=== PATIENT | female | born 1955 | race Caucasian/White ===

== ENCOUNTER 2017-04-28 09:03 | Outpatient (CLI) ==
[2015-05-10 08:13] VITALS: BMI 42.1
[2017-04-28 09:36] LABS: ALBUMIN 3.8 g/dL (3.4-5.0); ALBUMIN/GLOBULIN RATIO 1.12; ANION GAP 12.9; BILIRUBIN,TOTAL 0.52 mg/dL (0.00-1.20); BUN/CREATININE RATIO 17.94; CALCIUM 9.2 mg/dL (8.2-10.2); CHOL/HDL RATIO 4.1 (4.5-5.5); CREATININE 0.78 mg/dL (0.60-1.30); POTASSIUM 3.9 mmol/L (3.5-5.10); TOTAL PROTEIN 7.2 g/dL (5.8-8.1)
== END 2017-04-28 09:04 | disposition home or self-care (01) ==
LOC: LAB 09:03
PROVIDERS: ATTEND Nurse Practitioner Family
DX: E78.5 Hyperlipidemia, unspecified (principal)
CPT/HCPCS: 36415; 80053; 80061

== ENCOUNTER 2017-10-30 13:02 | Outpatient (CLI) ==
[2015-05-10 08:13] VITALS: BMI 42.1
[2017-10-30 14:06] LABS: BASOPHILS # (AUTO) 0.1 K/uL (0-0.2); BASOPHILS % (AUTO) 0.7 % (0.0-3.0); HEMOGLOBIN 13.3 g/dl (12.0-16.0); IMMATURE GRANULOCYTE % (AUTO) 0.3 % (0.0-5.0); LYMPHOCYTES # (AUTO) 3.5 K/uL (0.60-3.4); LYMPHOCYTES % (AUTO) 49.7 (10.0-50.0); MEAN CORPUSCULAR HEMOGLOBIN 29.8 pg (27.0-31.0); MEAN CORPUSCULAR HGB CONC 33.3 (31.8-35.4); MEAN CORPUSCULAR VOLUME 89.7 fl (81.0-99.0); MONOCYTES # (AUTO) 0.5 K/uL (0.4-2.0); MONOCYTES % (AUTO) 7.2 (0-10); NEUTROPHILS % (AUTO) 42.1; PLATELET COUNT 349 10^3/uL (140-440); RED BLOOD COUNT 4.46 10^6/ul (4.20-5.40); WHITE BLOOD COUNT 7.06 K/ul (4.6-10.2)
[2017-10-30 14:11] LABS: ALBUMIN 3.8 g/dL (3.4-5.0); ALBUMIN/GLOBULIN RATIO 0.95; ANION GAP 11.9; BILIRUBIN,TOTAL 0.47 mg/dL (0.00-1.20); BUN/CREATININE RATIO 18.82; CALCIUM 9.7 mg/dL (8.2-10.2); CREATININE 0.85 mg/dL (0.60-1.30); POTASSIUM 3.9 mmol/L (3.5-5.10); TOTAL PROTEIN 7.8 g/dL (5.8-8.1)
== END 2017-10-30 13:03 | disposition home or self-care (01) ==
LOC: LAB 13:02
PROVIDERS: ATTEND Nurse Practitioner Family
DX: E78.5 Hyperlipidemia, unspecified (principal); I10 Essential (primary) hypertension
CPT/HCPCS: 36415; 80053; 80061; 85025

== ENCOUNTER 2018-04-30 11:52 | Outpatient (CLI) | payer OTHER ==
[2015-05-10 08:13] VITALS: BMI 42.1
== END 2018-04-30 11:53 | disposition home or self-care (01) ==
LOC: RHC-LAB 11:52
PROVIDERS: ATTEND Nurse Practitioner Family
DX: E78.5 Hyperlipidemia, unspecified (principal); I10 Essential (primary) hypertension
CPT/HCPCS: 36415; 80053; 80061; 84443; 85025

== ENCOUNTER 2018-08-20 08:00 | Outpatient (RCR) | payer OTHER ==
[2015-05-10 08:13] VITALS: BMI 42.1
--- NOTE | 2018-08-04 11:21 | RS.OPPTEV2 ---
Date of Note: 08/04/18 Visit #: 1 Date of Evaluation: 08/04/18 Payer Source: MEDICARE Surgery Performed?: No Treatment Diagnosis: Right hip pain History of Condition/Mechanism of Injury:: Mrs. Guerrero reports having right hip pain for approximately 6 months with no known injury. Prior Level of Function.....Patient was independent with: ADL's, Self Care, Caregiving, Ambulation/Mobility, Community Integration/Access Functional Limitations: Sleep, ADL's, Sitting, Standing, Bending, Squatting, Ambulation, Community Access/Integration Current Subjective/complaints:: Patient reports right hip pain with prolonged sitting or standing. She describes right groin pain when first standing up after prolonged sitting. Denies radiating pain beyond the upper thigh and also denies tingling or numbness in the right LE. She has tried heat, which has eased the pain somewhat. She received an injection in the right lower back region. She states it has helped, but she can still feel pain. Reports difficulty sleeping due to being unable to stay on the right side very long. She has to change positions frequently. She is able to get a little relief when sitting, if she shifts her weight to the left hip and crosses the right leg over the left. Treatment Side (optional): Right Medical History Medical History Comments:: Physically Disabled (on Disability), his of Low back pain Smoking Status: Former smoker Hx Home Medications: Lisinopril Patient's Goals: Her goal is to get relief of right hip and low back pain. Pain Assessment - Pain Description Pain Location: right low back and hip Current Pain Intensity: 8/10 Worst Pain Intensity: not quantified Functional Outcome Measure LE Functional Scale: 37 (37/80=53.75% impairment) - G Codes & Severity Modifier G Codes & Modifier: body position current CK. Body position goal CI Source of G Code score: LE functional scale Observation - Observation Posture: Forward Head, Rounded Shoulders, Increased Lumbar Lordosis Gait - Gait Pattern Gait Comments: Pt ambulates independently without an assistive device. She demonstrates decreased stance on the right LE. - Strength Comments: Trunk strength 4/5. Bilateral LE strength 4+ to 5/5 . - Special Tests LION Test: Negative Left, Positive Right SLR Test: Negative Left, Negative Right Seated Dural Stretch Test: Negative Left, Negative Right SI Joint Compression: Negative Comments: Teri Test Negative bilaterally. Palpation Comments:: Patient demonstrates minimal to moderate muscle guarding along the mid to lower lumbar paraspinals. Reports moderate tenderness over the right SI joint, superior gluteal musculature and over the right Greater trochanter. Sensation - Sensation Right Lower Extremity: Intact/Normal Left Lower Extremity: Intact/Normal Additional Comments: Additional Comments: Right SLR to 45-50 degrees, left SLR to 60 degrees. - Treatment Modality: Ultrasound Parameters/Method Applied: X 10 mins to right lumbar and SI region, X 7 mins to right greater trochanter, both @ 1.5 w/cm2 continuous, total of 17 mins Patient Position: Left Sidelying Interventions - Exercise/Activities/Manual Therapy Exercises/Activities: Patient instructed in HS and Piriformis stretch for home. Also advised her to avoid bending straight over. Manual Therapy: NA HOME EXERCISE PROGRAM: Stretch to HS and Piriformis. - Charges Timed Code Treatment Minutes: 17 mins Total Treatment Time: 49 mins Procedures billed for this date of service:: EVAL Medium, US EVALUATION COMPLEXITY LEVEL EVALUATION COMPLEXITY LEVEL: HISTORY: Medium (Hx of LBP, Physically Disabled), EXAM OF BODY SYSTEMS: Medium, CLINICAL PRESENTATION: Medium, CLINICAL DECISION MAKING: Medium Assessment Assessment: Patient presents to therapy with a diagnosis of OA of right hip, Right hip pain. She reports right hip pain with prolonged sitting and standing. She exhibits muscle guarding along the lumbar spine, and tenderness along the right SI, right superior gluteal muscles, and over the greater trochanter. She also exhibits an imbalance in flexibility of the LE's. Right hip hip demonstrates tighter HS and Piriformis compared to the left LE. She demonstrates good potential to benefit from modalities to reduce tenderness, and stretching ex's to reduce her pain. Patient Education: Education of diagnosis, Body/Joint mechanics, Home Exercise Program, Activity Modification, Education of Plan of Care Rehab Potential: Good Short Term Goals Goal #1: Pt independent and compliant in HEP. Goal to be met by: 08/18/18 Goal #2: Right SLR to 50-55 degrees. Goal to be met by: 08/18/18 Goal #3: Tenderness at right SI joint and greater trochanter decreased to minimal. Goal to be met by: 08/18/18 Intermediate Goals Goal #1: Pt knows HEP and to continue ex's to maintain functional level at D/c. Goal to be met by: 09/13/18 Goal #2: Score on LE functional scale improved to 19% or less. Goal to be met by: 09/13/18 Goal #3: Pt to stand as needed for ADL's/functional activities with minimal pain. Goal to be met by: 09/13/18 Goal #4: Pt to sit as needed with minimal to no back or right hip pain. Goal to be met by: 09/13/18 Plan - Treatment to be Provided Procedures: Therapeutic Exercises, Therapeutic Activity, Patient Education Modalities: Electrical Stimulation, Ultrasound/Phonophoresis, Cryotherapy, Hot Packs - Treatment Plan Frequency: 2-3 X week Duration: 4 weeks ORDER # VISITS AND/OR THROUGH DATE: 09/13/18 - Treatment Code (1) Right hip pain Code(s): M25.551 - PAIN IN RIGHT HIP Comments: M25.551 (2) Low back pain Code(s): M54.5 - LOW BACK PAIN Qualifiers: Chronicity: unspecified Back pain laterality: right Sciatica presence: unspecified whether sciatica present Qualified Code(s): M54.5 - Low back pain
--- NOTE | 2018-08-06 15:33 | RS.OPPTDN ---
Subjective Date of Note: 08/06/18 Visit #: 2 Date of Evaluation: 08/04/18 Payer Source: MEDICARE Treatment Diagnosis: Right hip pain Current Subjective/complaints:: Reports first treatment helped reduce pain in the lowback and right hip. States she has worked on initial HEP. Pain Assessment - Pain Description Pain Location: lowback, right hip and S-I Current Pain Intensity: 7/10 Other Comments regarding Pain:: Reports pain down to mild following treatment and stretching exercise. - Treatment Modality: Ultrasound Parameters/Method Applied: [id number] at 1.5w/cm2 to the bilateral lower lumbar paraspinals and right S-I joint prior to EX. Patient Position: Left Sidelying - Heat/Cryotherapy Treatment: Hot Pack ([id number] to the lowback and hips prior to US and EX. Patient in supine. ) Interventions - Exercise/Activities/Manual Therapy Exercises/Activities: Assisted stretching of the bilateral HS, Piriformis, SKTC , and mod figure 4 hip stretch. Isometric hip flexion, isometric hip add. Pelvic tilt. Total minutes of Exercise: 14mins Manual Therapy: NA HOME EXERCISE PROGRAM: Stretch to HS and Piriformis. - Charges Timed Code Treatment Minutes: 14mins Total Treatment Time: 37mins Procedures billed for this date of service:: HP, US, EX Assessment: Patient responded well to treatment today with reports of pain reduction. She appears motivated to progress with HEP. Patient Education: Education of diagnosis, Body/Joint mechanics, Home Exercise Program Comments: Patient education of body mechanics and safety with lifting and functional activities at home. Patient demonstrates compliance with HEP?: Yes Short Term Goals Goal #1: Pt independent and compliant in HEP. Goal to be met by: 08/18/18 Progress towards Goal:: Progressing Goal #2: Right SLR to 50-55 degrees. Goal to be met by: 08/18/18 Goal #3: Tenderness at right SI joint and greater trochanter decreased to minimal. Goal to be met by: 08/18/18 Assisted Goals Goal #1: Pt knows HEP and to continue ex's to maintain functional level at D/c. Goal to be met by: 09/13/18 Goal #2: Score on LE functional scale improved to 19% or less. Goal to be met by: 09/13/18 Goal #3: Pt to stand as needed for ADL's/functional activities with minimal pain. Goal to be met by: 09/13/18 Goal #4: Pt to sit as needed with minimal to no back or right hip pain. Goal to be met by: 09/13/18 Plan PLAN OF CARE EXPIRES ON:: 09/13/18 ORDER # VISITS AND/OR THROUGH DATE: 09/13/18 PLAN: Continue modalities and progress with exercise to reduce pain and increase functional activity level.
--- NOTE | 2018-08-10 10:06 | RS.OPPTDN ---
Subjective Date of Note: 08/10/18 Visit #: 3 Date of Evaluation: 08/04/18 Payer Source: MEDICARE Treatment Diagnosis: Right hip pain Current Subjective/complaints:: Patient reports she stood for long periods this weekend at a family , and has had increased back pain and muscle tension. States she feels much better following treatment and exercise today. Pain Assessment - Pain Description Pain Location: lowback, right S-I Pain Description: Tightness, Dull, Aching Current Pain Intensity: mod prior to, mild following treatment today - Treatment Modality: Ultrasound Parameters/Method Applied: [id number] US at 1.5w/cm2 to the bilateral lowback and right right S-I joint prior to EX. Patient in left side-lying. Patient Position: Left Sidelying - Heat/Cryotherapy Treatment: Hot Pack ([id number] to the lowback and hips prior to US and EX. Patient in supine. ) Interventions - Exercise/Activities/Manual Therapy Exercises/Activities: Assisted stretching of the bilateral HS, Piriformis, SKTC , and mod figure 4 hip stretch. Isometric hip flexion, isometric hip add. MET of right hip isometric hip extension. Pelvic tilt. Began bridging. Total minutes of Exercise: 27mins Manual Therapy: NA HOME EXERCISE PROGRAM: Stretch to HS and Piriformis. - Charges Timed Code Treatment Minutes: 39mins Total Treatment Time: 59mins Procedures billed for this date of service:: HP, US, EX2 Assessment: Patient responding to treatment and trunk stability exercise with reports of reduction in pain. Patient Education: Body/Joint mechanics, Home Exercise Program, Home Safety Comments: Patient education of body mechanics and safe lifting. Patient demonstrates compliance with HEP?: Yes Short Term Goals Goal #1: Pt independent and compliant in HEP. Goal to be met by: 08/18/18 Progress towards Goal:: Progressing Goal #2: Right SLR to 50-55 degrees. Goal to be met by: 08/18/18 Progress towards Goal:: Progressing Goal #3: Tenderness at right SI joint and greater trochanter decreased to minimal. Goal to be met by: 08/18/18 Senior Living Goals Goal #1: Pt knows HEP and to continue ex's to maintain functional level at D/c. Goal to be met by: 09/13/18 Goal #2: Score on LE functional scale improved to 19% or less. Goal to be met by: 09/13/18 Goal #3: Pt to stand as needed for ADL's/functional activities with minimal pain. Goal to be met by: 09/13/18 Goal #4: Pt to sit as needed with minimal to no back or right hip pain. Goal to be met by: 09/13/18 Plan PLAN OF CARE EXPIRES ON:: 09/13/18 ORDER # VISITS AND/OR THROUGH DATE: 09/13/18 PLAN: Continue modalities and exercise to reduce pain and increase patients functional activity level.
--- NOTE | 2018-08-13 09:33 | RS.OPPTDN ---
Subjective Date of Note: 08/13/18 Visit #: 4 Date of Evaluation: 08/04/18 Payer Source: MEDICARE Treatment Diagnosis: Right hip pain Current Subjective/complaints:: Patient states her pain has been lower since her last session, but says she has not had much sleep. She says when she can't sleep, she performs stretches. Pain Assessment - Pain Description Pain Location: Pain is worse in her R hip than low back - Treatment Modality: Ultrasound Parameters/Method Applied: continuous @ 1.5 w/cm2 x 14 mins to the R lumbar paraspinals and R greater trochanter Patient Position: Left Sidelying - Heat/Cryotherapy Treatment: Hot Pack (mid to low back and hips in supine x 20 mins) Interventions - Exercise/Activities/Manual Therapy Exercises/Activities: Assisted stretching of the bilateral HS, Piriformis, SKTC , and mod figure 4 hip stretch. Lower trunk rotation. Isometric hip flexion, isometric hip add. Bridging x 10. Total minutes of Exercise: 17 Manual Therapy: NA HOME EXERCISE PROGRAM: Stretch to HS and Piriformis. - Charges Timed Code Treatment Minutes: 31 Total Treatment Time: 51 Procedures billed for this date of service:: hp, u/s, ex Assessment: Patient presents with mild pain to the lumbar region with more moderate pain at the R hip limiting prolonged standing and has difficulty sleeping on this side as it is her usual position. She is responding to current treatment and able to anthony progressive stretching. She is proactive with stretching program at home when she foresees elevated pain related to weather or activity. Patient Education: Body/Joint mechanics, Home Exercise Program Patient demonstrates compliance with HEP?: Yes Short Term Goals Goal #1: Pt independent and compliant in HEP. Goal to be met by: 08/18/18 Progress towards Goal:: Progressing Goal #2: Right SLR to 50-55 degrees. Goal to be met by: 08/18/18 Progress towards Goal:: Progressing Goal #3: Tenderness at right SI joint and greater trochanter decreased to minimal. 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 Goal to be met by: 09/13/18 Goal #2: Score on LE functional scale improved to 19% or less. Goal to be met by: 09/13/18 Goal #3: Pt to stand as needed for ADL's/functional activities with minimal pain. Goal to be met by: 09/13/18 Goal #4: Pt to sit as needed with minimal to no back or right hip pain. Goal to be met by: 09/13/18 Plan PLAN OF CARE EXPIRES ON:: 09/13/18 ORDER # VISITS AND/OR THROUGH DATE: 09/13/18 PLAN: Patient to continue for modalities and therex to improve back and R hip pain/strength.
--- NOTE | 2018-08-17 12:57 | RS.OPPTDN ---
Subjective Date of Note: 08/17/18 Visit #: 5 Date of Evaluation: 08/04/18 Payer Source: MEDICARE Treatment Diagnosis: Right hip pain Current Subjective/complaints:: Patient reports good progress with decreased back and right hip pain. States she has been careful with work at home. She and her are remodeling a house and she also does yardwork. Pain Assessment - Pain Description Pain Location: lowback and right S-I joint Current Pain Intensity: moderate - Treatment Modality: Ultrasound Parameters/Method Applied: [id number] at 1.5w/cm2 to the right lower lumbar paraspinals and right S-I joint region prior to EX. Patient Position: Left Sidelying - Heat/Cryotherapy Treatment: Hot Pack ([id number] to the lowback and hips prior to US and EX. Patient in supine. ) Interventions - Exercise/Activities/Manual Therapy Exercises/Activities: Assisted stretching of the bilateral HS, Piriformis, SKTC , and mod figure 4 hip stretch. Lower trunk rotation. Isometric hip flexion, isometric hip add. MET with isometric right hip ext, 3s/3reps. Bridging. Total minutes of Exercise: 14mins Manual Therapy: NA HOME EXERCISE PROGRAM: Stretch to HS and Piriformis. Isometric hip add. Bridging. - Charges Timed Code Treatment Minutes: 24mins Total Treatment Time: 44mins Procedures billed for this date of service:: HP, US, EX Assessment: Patient reporting consistent progress with decrease in pain and increase in functional activities. Patient Education: Home Exercise Program, Home Safety Patient demonstrates compliance with HEP?: Yes Short Term Goals Goal #1: Pt independent and compliant in HEP. Goal to be met by: 08/18/18 Progress towards Goal:: Partially Met Goal #2: Right SLR to 50-55 degrees. Goal to be met by: 08/18/18 Progress towards Goal:: Progressing Goal #3: Tenderness at right SI joint and greater trochanter decreased to minimal. Goal to be met by: 08/18/18 Progress towards Goal:: Progressing [facility] Goals Goal #1: Pt knows HEP and to continue ex's to maintain functional level at D/c. Goal to be met by: 09/13/18 Progress towards goal: Progressing Goal #2: Score on LE functional scale improved to 19% or less. Goal to be met by: 09/13/18 Goal #3: Pt to stand as needed for ADL's/functional activities with minimal pain. Goal to be met by: 09/13/18 Goal #4: Pt to sit as needed with minimal to no back or right hip pain. Goal to be met by: 09/13/18 Plan PLAN OF CARE EXPIRES ON:: 09/13/18 ORDER # VISITS AND/OR THROUGH DATE: 09/13/18 PLAN: Continue modalities and progressive exercise to reduce pain and increase functional activity level.
--- NOTE | 2018-08-20 09:39 | RS.OPPTDN ---
Subjective Date of Note: 08/20/18 Visit #: 6 Date of Evaluation: 08/04/18 Payer Source: MEDICARE Treatment Diagnosis: Right hip pain Current Subjective/complaints:: Patient reports pain continues to improve. She reports right LE radicular symptoms have localized into the right S-I joint area. Pain Assessment - Pain Description Pain Location: right S-I joint area Pain Description: Dull, Aching Current Pain Intensity: little to no discomfort follwoing treatment and exercise Worst Pain Intensity: 4/10 on average - Treatment Modality: Ultrasound (h) Parameters/Method Applied: 10mins @1.5w/cm2 to the right lower lumbar paraspinals, S-I joint, and along the line of the piriformis prior to EX. Patient Position: Left Sidelying - Heat/Cryotherapy Treatment: Hot Pack ([id number] to the lowback and hips prior to US and EX. Patient in supine.) Interventions - Exercise/Activities/Manual Therapy Exercises/Activities: Assisted stretching of the bilateral HS, Piriformis, SKTC , and mod figure 4 hip stretch. Isometric hip flexion, isometric hip add. MET with manual resistance for isometric right hip ext, 3s/3reps. Bridging. Began self MET for pelvic alignment and stability with isometric left hip flexion and right hip ext with LE in full extension. Then isometric MET with wand to resist left hip flexion and right hip ext, and self MET at wall with left hip flexion. Total minutes of Exercise: 19mins Manual Therapy: NA HOME EXERCISE PROGRAM: Stretch to HS and Piriformis. Isometric hip add. Bridging. Self MET in supine and standing. - Objective Findings Observations,measurements,etc.: Patient vicki improved ability to work on self MET, but needs instruction to facilitate proper muscle engagement. - Charges Timed Code Treatment Minutes: 29mins Total Treatment Time: 49mins Procedures billed for this date of service:: HP, US, EX Assessment: Patient progressing with reports of decreased pain, localization of radicular symptoms, and begining self MET. She will need continued instruction and monitoring to progress toward independent. Patient Education: Body/Joint mechanics, Home Exercise Program, Home Safety Comments: Focus today on patient education of proper technique with self MET. Patient demonstrates compliance with HEP?: Yes Short Term Goals Goal #1: Pt independent and compliant in HEP. Goal to be met by: 08/18/18 Progress towards Goal:: Partially Met Goal #2: Right SLR to 50-55 degrees. Goal to be met by: 08/18/18 Progress towards Goal:: Partially Met Goal #3: Tenderness at right SI joint and greater trochanter decreased to minimal. Goal to be met by: 08/18/18 Progress towards Goal:: Partially Met Group Home Goals Goal #1: Pt knows HEP and to continue ex's to maintain functional level at D/c. Goal to be met by: 09/13/18 Progress towards goal: Progressing Goal #2: Score on LE functional scale improved to 19% or less. Goal to be met by: 09/13/18 Goal #3: Pt to stand as needed for ADL's/functional activities with minimal pain. Goal to be met by: 09/13/18 Progress towards goal: Progressing Goal #4: Pt to sit as needed with minimal to no back or right hip pain. Goal to be met by: 09/13/18 Progress towards goal: Progressing Plan PLAN OF CARE EXPIRES ON:: 09/13/18 ORDER # VISITS AND/OR THROUGH DATE: 09/13/18 PLAN: Progress with exercise and self MET to promote pelvic alignment and stability.
== END 2018-08-23 23:59 ==
PROVIDERS: ATTEND Nurse Practitioner Family
DX: M16.11 Unilateral primary osteoarthritis, right hip (principal); M25.551 Pain in right hip

== ENCOUNTER 2018-08-31 08:00 | Outpatient (RCR) ==
[2017-04-28 09:07] VITALS: BMI 42.1
--- NOTE | 2018-08-27 10:35 | RS.OPPTDN ---
Subjective Date of Note: 08/27/18 Visit #: 7 Date of Evaluation: 08/04/18 Payer Source: MEDICARE Treatment Diagnosis: Right hip pain Current Subjective/complaints:: Patient reports she has been doing much better. Reports increased activity at home without increased pain. She does report muscle soreness today due to a fall at her barn where she missed a step-up. Pain Assessment - Pain Description Pain Location: right S-I and gluteal region Current Pain Intensity: mild Other Comments regarding Pain:: Reports general muscle soreness LB and hips after having a fall this week. - Treatment Modality: Ultrasound Parameters/Method Applied: [id number] US at 1.5w/cm2 to the right S-I joint region prior to EX. Patient Position: Left Sidelying - Heat/Cryotherapy Treatment: Hot Pack ([id number] to the lowback and hips prior to US and EX. Patient in supine. ) Interventions - Exercise/Activities/Manual Therapy Exercises/Activities: Assisted stretching of the bilateral HS, Piriformis, SKTC , and mod figure 4 hip stretch. Isometric hip flexion, isometric hip add. MET with manual resistance for isometric right hip ext, 3s/3reps. Bridging. Began self MET for pelvic alignment and stability with isometric left hip flexion and right hip ext with LE in full extension. Began green theraband resisted bilateral hip abd in hook-lying, 2s/10reps. Patient instructed and monitored in proper position and muscle engagement to promote pelvic stability. Total minutes of Exercise: 17mins Manual Therapy: NA HOME EXERCISE PROGRAM: Stretch to HS and Piriformis. Isometric hip add. Bridging. Self MET in supine and standing. Green theraband for resistive bilateral hip abd in hook-lying. - Charges Timed Code Treatment Minutes: 27mins Total Treatment Time: 42mins Procedures billed for this date of service:: HP, US, EX Assessment: Patient reports she has made progress with pain reduction and increase in functional activity level. She reports increased soreness today due to a fall. Patient Education: Body/Joint mechanics, Home Exercise Program, Home Safety Comments: Patient education focus on progressive pelvic stability to reduce pain and increase functional activity level. Patient demonstrates compliance with HEP?: Yes Short Term Goals Goal #1: Pt independent and compliant in HEP. Goal to be met by: 08/18/18 Progress towards Goal:: Partially Met Goal #2: Right SLR to 50-55 degrees. Goal to be met by: 08/18/18 Progress towards Goal:: Partially Met Goal #3: Tenderness at right SI joint and greater trochanter decreased to minimal. Goal to be met by: 08/18/18 Progress towards Goal:: Partially Met Hand Former Goals Goal #1: Pt knows HEP and to continue ex's to maintain functional level at D/c. Goal to be met by: 09/13/18 Progress towards goal: Partially Met Goal #2: Score on LE functional scale improved to 19% or less. Goal to be met by: 09/13/18 Goal #3: Pt to stand as needed for ADL's/functional activities with minimal pain. Goal to be met by: 09/13/18 Progress towards goal: Met Goal #4: Pt to sit as needed with minimal to no back or right hip pain. Goal to be met by: 09/13/18 Progress towards goal: Partially Met Plan PLAN OF CARE EXPIRES ON:: 09/13/18 ORDER # VISITS AND/OR THROUGH DATE: 09/13/18 PLAN: Progress pelvic stability exercise to increase patients functional activity level.
--- NOTE | 2018-08-31 09:38 | RS.OPPTDN ---
Subjective Date of Note: 08/31/18 Visit #: 8 Date of Evaluation: 08/04/18 Payer Source: MEDICARE Treatment Diagnosis: Right hip pain Current Subjective/complaints:: Patient reports she continues to make improvement. States she has had no increased pain with light daily activities. She has mod discomfort with manual pressure. Pain Assessment - Pain Description Pain Location: right S-I joint Pain Description: Dull, Aching Current Pain Intensity: mild, mod with manual pressure to right S-I - Treatment Modality: Ultrasound Parameters/Method Applied: [id number] at 1.5w/cm2 to the right S-I joint prior to EX. Patient Position: Left Sidelying - Heat/Cryotherapy Treatment: Hot Pack ([id number] to the lowback and hip prior to US and EX. Patient in supine. ) Interventions - Exercise/Activities/Manual Therapy Exercises/Activities: Assisted stretching of the bilateral HS, Piriformis, SKTC , and mod figure 4 hip stretch. ITB stretch bilaterally. Isometric hip flexion, isometric hip add. MET with manual resistance for isometric right hip ext, 3s/ 3reps. Manually resisted right hip ER. Bridging. Instruction in proper position and muscle engagement with MET and pelvic stability exercises. Total minutes of Exercise: 20mins Manual Therapy: x7mins Trigger point release to the right S-I joint area, including piriforms and upper gluts. Patient in left side-lying. Total minutes of Manual Therapy: 7mins HOME EXERCISE PROGRAM: Stretch to HS and Piriformis. Isometric hip add. Bridging. Self MET in supine and standing. Green theraband for resistive bilateral hip abd in hook-lying. - Charges Timed Code Treatment Minutes: 39mins Total Treatment Time: 59mins Procedures billed for this date of service:: HP, US, MT, EX Assessment: Patient continues to respond to modalities and exercise. She consistently reports a reduction in pain and an increase in functional activities. Patient Education: Education of diagnosis, Body/Joint mechanics, Home Exercise Program Patient demonstrates compliance with HEP?: Yes Short Term Goals Goal #1: Pt independent and compliant in HEP. Goal to be met by: 08/18/18 Progress towards Goal:: Met Goal #2: Right SLR to 50-55 degrees. Goal to be met by: 08/18/18 Progress towards Goal:: Partially Met Goal #3: Tenderness at right SI joint and greater trochanter decreased to minimal. Goal to be met by: 08/18/18 Progress towards Goal:: Partially Met [facility] Goals Goal #1: Pt knows HEP and to continue ex's to maintain functional level at D/c. Goal to be met by: 09/13/18 Progress towards goal: Partially Met Goal #2: Score on LE functional scale improved to 19% or less. Goal to be met by: 09/13/18 Goal #3: Pt to stand as needed for ADL's/functional activities with minimal pain. Goal to be met by: 09/13/18 Progress towards goal: Met Goal #4: Pt to sit as needed with minimal to no back or right hip pain. Goal to be met by: 09/13/18 Progress towards goal: Partially Met Plan PLAN OF CARE EXPIRES ON:: 09/13/18 ORDER # VISITS AND/OR THROUGH DATE: 09/13/18 PLAN: Continue modalities, manual therapy, MET, and progressive exercise to increase patients functional activitiy level.
--- NOTE | 2018-09-03 09:24 | RS.CXNS ---
Date of scheduled appointment: 09/03/18 Type: Cancel (Patient called to cancel appointment today. Did not give reason, but reschedules for next week.)
--- NOTE | 2018-09-07 15:56 | RS.CXNS ---
Date of scheduled appointment: 09/07/18 Type: Cancel (Patient comes to hospital one hour early for appointment. She then states she is feeling sick and has decided to go home.)
--- NOTE | 2018-09-22 13:24 | RS.OPPTDC ---
Date of Discharge: 09/22/18 Date of Evaluation: 08/04/18 Number of Visits: 8 Treatment Diagnosis: Right hip pain Current Complaints/Gains: Patient reported good progress with reduction of pain on last attended therapy session. Reported being able to stand for all ADL's with minimal to no pain. Functional Outcome Measure LE Functional Scale: 58 (58/80=27.5% ) - G Codes & Severity Modifier G Codes & Modifier: body Pos Goal CI. body pos D/C CJ Source of G Code score: LE functional scale Interventions - Exercise/Activities/Manual Therapy Exercises/Activities: NA Manual Therapy: NA HOME EXERCISE PROGRAM: Stretch to HS and Piriformis. Isometric hip add. Bridging. Self MET in supine and standing. Green theraband for resistive bilateral hip abd in hook-lying. - Objective Findings Observations,measurements,etc.: Patient independent with HEP and self muscle energy tech for SI alignment. Demonstrates SLR 50-55 degrees bilaterally. - Charges Timed Code Treatment Minutes: NA Total Treatment Time: NA Procedures billed for this date of service:: NA Assessment Assessment: Mrs. Guerrero was progressing well towards all goals and reporting decreased pain and improved function. She cancelled two appointmens and then did not show or call to reschedule. Patient discharged at this time due to unexpectedly stopping attendance to therapy. Short Term Goals Goal #1: Pt independent and compliant in HEP. Goal to be met by: 08/18/18 Progress towards Goal:: Met Goal #2: Right SLR to 50-55 degrees. Goal to be met by: 08/18/18 Progress towards Goal:: Partially Met Goal #3: Tenderness at right SI joint and greater trochanter decreased to minimal. Goal to be met by: 08/18/18 Progress towards Goal:: Partially Met [employer] Goals Goal #1: Pt knows HEP and to continue ex's to maintain functional level at D/c. Goal to be met by: 09/13/18 Progress towards goal: Partially Met Goal #2: Score on LE functional scale improved to 19% or less. Goal to be met by: 09/13/18 Progress towards goal: Not Met Goal #3: Pt to stand as needed for ADL's/functional activities with minimal pain. Goal to be met by: 09/13/18 Progress towards goal: Met Goal #4: Pt to sit as needed with minimal to no back or right hip pain. Goal to be met by: 09/13/18 Progress towards goal: Partially Met Plan Reason for Discharge:: Pt stopped attending , POC not complete
== END 2018-09-23 23:59 ==
PROVIDERS: ATTEND Nurse Practitioner Family
DX: M16.11 Unilateral primary osteoarthritis, right hip (principal); M25.551 Pain in right hip; M54.5 Low back pain

== ENCOUNTER 2019-05-10 08:07 | Outpatient (CLI) ==
[2017-04-28 09:07] VITALS: BMI 42.1
== END 2019-05-10 08:08 | disposition home or self-care (01) ==
LOC: RHC-LAB 08:07
PROVIDERS: ATTEND Nurse Practitioner Family
DX: E78.5 Hyperlipidemia, unspecified (principal); I10 Essential (primary) hypertension
CPT/HCPCS: 36415; 80053; 80061; 84443; 85025